=== PATIENT | female | born 1990 | race Two or more races ===

== ENCOUNTER 2023-09-16 13:05 | Outpatient (CLI) | payer OTHER | END 2023-09-16 13:06 | disposition home or self-care (01) | LOC: PRENATAL 13:05 | PROVIDERS: ATTEND Obstetrics & Gynecology Maternal & Fetal Medicine | DX: O36.80X0 Pregnancy with inconclusive fetal viability, not applicable or unspecified (principal); Z36.82 Encounter for antenatal screening for nuchal translucency; Z36.9 Encounter for antenatal screening, unspecified; Z3A.12 12 weeks gestation of pregnancy ==

== ENCOUNTER 2023-12-13 15:57 | Outpatient (CLI) | payer OTHER | END 2023-12-13 16:04 | disposition home or self-care (01) | LOC: PRENATAL 15:57 | PROVIDERS: ATTEND Obstetrics & Gynecology Maternal & Fetal Medicine | DX: O35.9XX0 Maternal care for (suspected) fetal abnormality and damage, unspecified, not applicable or unspecified (principal); O35.3XX0 Maternal care for (suspected) damage to fetus from viral disease in mother, not applicable or unspecified; O44.00 Complete placenta previa NOS or without hemorrhage, unspecified trimester; Z3A.25 25 weeks gestation of pregnancy ==

== ENCOUNTER 2024-02-03 11:17 | Outpatient (CLI) | payer OTHER | END 2024-02-03 11:19 | disposition home or self-care (01) | LOC: PRENATAL 11:17 | PROVIDERS: ATTEND Obstetrics & Gynecology Maternal & Fetal Medicine | DX: O26.849 Uterine size-date discrepancy, unspecified trimester (principal); O36.8199 Decreased fetal movements, unspecified trimester, other fetus; O99.210 Obesity complicating pregnancy, unspecified trimester; Z3A.32 32 weeks gestation of pregnancy ==